=== PATIENT | male | born 1980 | race Caucasian/White ===

== ENCOUNTER 2024-03-02 15:49 | Emergency (ER) | payer OTHER ==
[~2024-03-02] VITALS: Ht 185.4 cm; Wt 107.7 kg
[2024-03-02 15:56] VITALS: TEMP 98.1
[2024-03-02] MEDS ORDERED: Ibuprofen 600 MG TAB PO ONE (16:45)
[2024-03-02] MEDS ORDERED: Lido/EPI/Tetrac Gel 3 ML SYRINGE TOP ONE (16:45)
[2024-03-02 18:00] VITALS: BP 126/80; PULSE 66
== END 2024-03-02 18:00 | disposition home or self-care (01) ==
LOC: COL.ER 15:49
DX: S09.90XA Unspecified injury of head, initial encounter (principal); S01.01XA Laceration without foreign body of scalp, initial encounter; W22.09XA Striking against other stationary object, initial encounter